=== PATIENT | female | born 1980 | race Two or more races ===

== ENCOUNTER 2016-07-31 17:48 | Observation (INO) | payer MEDICARE, MEDICAID ==
[2016-07-31 17:49] VITALS: BMI 29.6
[2016-07-31] MEDS ORDERED: NS 1,000 ML IV ONE (17:52)
[2016-07-31] MEDS ORDERED: ACTIVATED CHARCOAL 25 GM in AQUEOUS SUSP PO ONE (17:53)
--- NOTE | 2016-07-31 18:04 | EDPRACDOC ---
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: Ambulance Home Medications: Home Medications Alprazolam [Xanax] 1 mg PO BID PRN 08/21/14 Omeprazole [Prilosec] 20 mg PO DAILY 08/21/14 Eszopiclone [Lunesta] 3 mg PO QHS 12/07/15 Albuterol Sulfate [Ventolin Hfa] 1 - 2 puff INH Q4H PRN 07/31/16 Hydrocodone Bit/Acetaminophen [Tyler 10-325 Tablet] 1 tab PO BID 07/31/16 Pregabalin [Lyrica] 75 mg PO BID 07/31/16 Allergies/Adverse Reactions: Allergies Allergy/AdvReac Type Severity Reaction Status Date / Time fish derived Allergy Hives* Verified 12/07/15 14:03 Penicillins Allergy Hives* Verified 12/07/15 14:03 shellfish derived Allergy Hives* Verified 12/07/15 14:03 - History of Present 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 SHE FELT LIKE THE KIDS DID NOT APPRECIATE HER. PT SAID THAT SHE WANTED TO SHOW THE KIDS NOT TO TAKE HER FOR GRANTED, SO SHE WENT TO HER ROOM AND TOOK ALL OF HER MEDS. PT'S MEDS WERE FILLED ON 07/23. PT'S KIDS FOUND HER IN THE ROOM WITH HER EMPTY PILL BOTTLES, SO THEY CALLED 911. Reason for Seeking Treatment: 911 Call Presents With: Reports: Depression, Suicidal Ideation Expresses: Reports: Suicidal Intent, Suicidal Plan Suicidal Plan: Reports: Overdose Stressors: Reports: Family Relevant History: Reports: Depression Tetanus Up To Date?: No Able to Care for Self: No Able to Control Self: No ED Past Medical History - Patient Medical History GI/ History: Reports: Gastroesophageal Reflux Psychological History: Reports: Depression, Anxiety Systemic History: Reports: Anemia. Denies: Cancer Surgical History: Reports: No Significant History - Social Medical History Smoking Status: Heavy tobacco smoker (5 or more cigarettes/day or daily pipe/ cigar) ETOH: None Substance Abuse: None Lives In: Home EDM Review of Systems - Review of Systems ROS Negative Except as Marked: Yes All systems reviewed and were negative except as marked Psychiatric: Depression, Suicidal - Physical Exam Constitutional: Alert (Awake), Other (TEARFUL) Oriented to: Time, Person, Place Last recorded Vital Signs: Oxygen Pulse Oxygen Saturation O2 Device Oxygen Flow Rate Fraction of Inspired Oxygen ( FIO2) - HEENT Head: Normal ( normocephalic) Eye Exam: Normal (PERRL, EOMI, Sclera white) Oropharynx: Normal (Pharynx:Moist without exudate,Gums-no swelling) ENT EAC: Normal TMJ: Normal Nose: No Symptoms Reported (septum midline) Neck: Normal (FROM, trachea at midline) - Respiratory/Cardiovascular Respiratory: Normal - CTA (BBS clear to auscultation without adventitious sounds ) Cardiovascular: Normal (RRR without murmur, gallop or rub) - GI Auscultation: Normal (NABS) Palpation: Normal (Soft,No rebound or guarding, non distended) Tenderness: Non tender Dumont's Sign: Negative - Musculoskeletal Back: Normal (Non-Tender) Extremities: Normal (Normal tone, Pulses 2+ No cyanosis or edema, FROM) - Integumentary Skin: Normal, Warm, Dry Lymphatics: Normal (no adenopathy) - Neurologic Memory Impaired: Normal Motor Function: Normal (Normal tone, Pulses 2+ No cyanosis or edema, FROM) Cranial Nerve: Normal (CN II-X11 intact sensation, strength 5/5) Cerebellar: Normal Mood Description: Anxious, Depressed Perception: Normal - Results 07/31/16 18:06 07/31/16 18:06 - EKG EKG #1 EKG Time: 18:02 -: Yes EKG interpreted by me Rate: bpm: 75 [place]: Normal Rhythm: NSR Block: None Hypertrophy: None ST: Normal - Departure Yes I personally saw and evaluated the patient. Disposition: Admit to Final Diagnosis: Suicidal ideation, Intentional drug overdose Education/Counseling Given To: Patient Education/Counseling Given Regarding: Diagnosis, Treatment Referrals: None,No Provider [Primary Care Provider] - One Week Prescriptions: No Action Omeprazole [Prilosec] 20 mg PO DAILY Alprazolam [Xanax] 1 mg PO BID PRN PRN Reason: PANICK ATTACKS Eszopiclone [Lunesta] 3 mg PO QHS Pregabalin [Lyrica] 75 mg PO BID Hydrocodone Bit/Acetaminophen [Tyler 10-325 Tablet] 1 tab PO BID Albuterol Sulfate [Ventolin Hfa] 1 - 2 puff INH Q4H PRN PRN Reason: SHORTNESS OF BREATH
[2016-07-31 18:17] LABS: ALL NEG? NO
[2016-07-31] MEDS ORDERED: NICOTINE 21 MG PATCH TOP ONE (18:19)
[2016-07-31 18:22] LABS: AUTOMATED BASOPHIL 0.7 % (0-2); AUTOMATED EOSINOPHIL 0.8 % (0-5); AUTOMATED MONOCYTE 4.8 % (3-10); AUTOMATED NEUTROPHIL 83.7 % (45-76); MPV 9.4 fL (7.4-10.4)
[2016-07-31 18:29] LABS: MDMA* NEG (NEGATIVE); METHAMPHETAMINES NEG (NEGATIVE); OXYCODONE NEG (NEGATIVE)
[2016-07-31 18:31] LABS: BLOOD UREA NITROGEN 12 MG/DL (7-17); CALC CORRECTED 9.1 MG/DL (8.4-10.2); CALCIUM 8.8 MG/DL (8.4-10.2); CALCULATED OSMOLALITY 270 MOs/Kg (270-290); CHLORIDE 104 mEq/L (98-107); ETOH-MGDL < 10 mg/dL; GLUCOSE 87 mg/dL (70-99); SODIUM LEVEL 141 mEq/L (137-146); TOTAL PROTEIN 6.9 G/DL (6.3-8.2)
[2016-07-31] MEDS ORDERED: GUAIFENESIN 200 MG/10 ML UDC PO PRN (18:43)
[2016-07-31] MEDS ORDERED: Docusate Sodium 100 MG CAP PO PRN (18:43)
[2016-07-31] MEDS ORDERED: IBUPROFEN 400 MG TAB PO PRN (18:43)
[2016-07-31] MEDS ORDERED: MAGNESIUM HYDROXIDE 30 ML BOTTLE PO PRN (18:43)
[2016-07-31] MEDS ORDERED: ONDANSETRON HCL 4 MG ODT TAB PO PRN (18:43)
[2016-07-31] MEDS ORDERED: ALBUTEROL 6.7 GM MDI INH PRN (18:44)
[2016-07-31] MEDS ORDERED: NICOTINE 21 MG PATCH TOP SCH (19:00)
[2016-07-31] MEDS ORDERED: ALBUTEROL 6.7 GM MDI INH SCH (19:03)
[2016-08-01 00:57] VITALS: BP 141/77; PULSE 89; TEMP 97.5
[2016-08-01] MEDS ORDERED: PANTOPRAZOLE 40 MG TAB PO SCH (06:00)
[2016-08-01] MEDS ORDERED: Non-Formulary Medication ITEM (Omeprazole 20 MG) PO SCH (09:00)
== END 2016-08-01 01:07 | disposition home or self-care (01) ==
LOC: ED 17:48 → EDINP 18:43 → TUOBSINP 22:50
PROVIDERS: ADMIT Emergency Medicine; ATTEND Emergency Medicine
DX: T50.902A Poisoning by unspecified drugs, medicaments and biological substances, intentional self-harm, initial encounter (principal); F32.9 Major depressive disorder, single episode, unspecified; F41.9 Anxiety disorder, unspecified; F17.200 Nicotine dependence, unspecified, uncomplicated; K21.9 Gastro-esophageal reflux disease without esophagitis; Z79.899 Other long term (current) drug therapy
CPT/HCPCS: 36415; 80053; 80307; 81025; 85025; 93005; 96360; 96361; 99285; A9270; G0378; G0480; 80329; J3490